=== PATIENT | male | born 1965 ===

== ENCOUNTER 2018-10-26 08:37 | Emergency (ER) | payer OTHER ==
[~2018-10-26] VITALS: Ht 180.3 cm; Wt 88.5 kg
[2018-10-26] MEDS ORDERED: AVAPRO300 MG (08:47)
== END 2018-10-26 10:25 | disposition home or self-care (01) ==
LOC: ER 08:37
DX: M54.2 Cervicalgia (principal); M62.838 Other muscle spasm